=== PATIENT | male | born 1950 | race Caucasian/White ===

== ENCOUNTER 2017-06-12 12:53 | Emergency (ER) | payer OTHER ==
[~2017-06-12] VITALS: Ht 175.3 cm; Wt 82.6 kg
--- NOTE | 2017-06-12 12:55 | NUR ---
PT TO OVERFLOW.
--- NOTE | 2017-06-12 13:05 | NUR ---
PATIENT PRESENTS TO ED WITH C/O FACIAL PAIN X1 WEEK . PT STATES HE HAS RECENT DX OF SHINGLES ON FACE . DENIES N/V/D; RED, RAISED, BLISTERED RASH NOTED TO ENTIRE FACE, SKIN IS OTHERWISE PINK/WARM/DRY; AAOX4 WITH EVEN AND STEADY GAIT; LUNGS CLEAR BL; HR EVEN AND REGULAR; PT DENIES ANY FEVER, CP, SOB, OR COUGH AT THIS TIME; PATIENT STATES PAIN OF 9/10 AT THIS TIME; VSS; PATIENT POSITIONED IN OVERFLOW. ER MD MADE AWARE OF PT STATUS.
[2017-06-12 13:06] VITALS: BP 144/99
[2017-06-12] MEDS ORDERED: FLUORESCEIN OPTH STRIP 1 MG OP ONE (13:35)
--- NOTE | 2017-06-12 14:00 | NUR ---
MERT Waller EVALUATING PT IN OVERFLOW.
--- NOTE | 2017-06-12 14:25 | NUR ---
Patient discharged with v/s stable. Written and verbal after care instructions given and explained. Patient alert, oriented and verbalized understanding of instructions. Ambulatory with steady gait. All questions addressed prior to discharge. ID band removed. Patient advised to follow up with PMD. Rx of ACYCLOVIR, SULFACETAMINDE SODIUM DROPS given. Patient educated on indication of medication including possible reaction and side effects. Opportunity to ask questions provided and answered.
[2017-06-12 14:26] VITALS: BP 144/99
== END 2017-06-12 14:25 | disposition home or self-care (01) ==
LOC: MED 12:53
DX: B02.9 Zoster without complications (principal); H10.9 Unspecified conjunctivitis
CPT/HCPCS: 99283